=== PATIENT | male | born 1980 ===

== ENCOUNTER 2019-05-16 11:33 | Inpatient (IN) | payer OTHER ==
[~2019-05-16] VITALS: Ht 167.6 cm; Wt 75.0 kg
[2019-05-16] MEDS ORDERED: DIVA-76 PO (12:02)
[2019-05-16] MEDS ORDERED: LEVE250T55 PO (12:02)
[2019-05-16] MEDS ORDERED: ACETAMINOPHEN 325 MG TABLET PO PRN ×2 (12:45→22:45)
[2019-05-16] MEDS ORDERED: ONDANSETRON HCL 4 MG/2 ML VIAL IVP PRN ×2 (12:45→22:45)
[2019-05-16 12:46] LABS: BASOPHILS % (AUTO) 0.9 % (0.0-2.0); EOSINOPHILS % (AUTO) 2.2 % (1.0-6.0); HEMATOCRIT 48.2 % (41-53); HEMOGLOBIN 16.3 g/dL (13.5-17.5); LYMPHOCYTES # (AUTO) 2.2 K/uL (1.0-4.8); LYMPHOCYTES % (AUTO) 31.6 % (22.0-44.0); MEAN CORPUSCULAR HEMOGLOBIN 33.4 pg (26.0-34.0); MEAN CORPUSCULAR HGB CONC 33.9 G/dL (31.0-37.0); MEAN CORPUSCULAR VOLUME 99 fL (80-100); MONOCYTES % (AUTO) 14.3 % (2.0-9.0); NEUTROPHILS # (AUTO) 3.6 K/uL (1.8-7.7); PLATELET COUNT (AUTO) 155 K/uL (150-450); RED BLOOD CELL COUNT(AUTO) 4.89 MIL/uL (4.50-5.90); RED CELL DISTRIBUTION WIDTH 13.6 % (11.5-14.5)
[2019-05-16 13:10] LABS: ANION GAP 14 mmol/L (8-16); CALCIUM, TOTAL 9.4 mg/dL (8.8-10.5); CARBON DIOXIDE 24 mmol/L (22-29); CHLORIDE 100 mmol/L (98-107); CREATININE 0.71 mg/dL (0.60-1.30); GLOMERULAR FILTR. RATE CALC > 60 mL/min (>60); GLUCOSE,RANDOM 105 mg/dL (70-110); POTASSIUM 4.3 mmol/L (3.5-5.1); SODIUM SERUM 138 mmol/L (136-145); UREA NITROGEN, BLOOD 12 mg/dL (7-18)
[2019-05-16 13:17] LABS: ALANINE AMINOTRANSFERASE 219 U/L (12-78); ALBUMIN 3.7 g/dL (3.4-5.0); ALKALINE PHOSPHATASE 60 U/L (46-116); ASPARTATE AMINOTRANSFERASE 142 U/L (15-37); BILIRUBIN,TOTAL 1.2 mg/dL (0.1-1.0); TOTAL PROTEIN, SERUM 8.2 g/dL (6.4-8.2); VALPROIC ACID 91 mcg/mL (50-100)
[2019-05-16 13:48] LABS: AMPHET/METH SCREEN,URINE NEGATIVE (NEGATIVE); BARBITURATE SCREEN, URINE NEGATIVE (NEGATIVE); BENZODIAZEPINES SCREEN,URINE NEGATIVE (NEGATIVE); CANNABINOID SCREEN,URINE POSITIVE (NEGATIVE); COCAINE SCREEN,URINE NEGATIVE (NEGATIVE); METHADONE SCREEN, URINE NEGATIVE (NEGATIVE); OPIATE SCREEN,URINE NEGATIVE (NEGATIVE); PHENCYCLIDINE SCREEN,URINE NEGATIVE (NEGATIVE)
[2019-05-16 14:32] VITALS: BP 125/86
[2019-05-16 16:50] VITALS: BP 116/69
[2019-05-16] MEDS: DIVALPROEX SODIUM 250 MG DR TABLET PO SCH (19:04)
[2019-05-16 19:16] VITALS: BP 114/74
[2019-05-16] MEDS: LevETIRAcetam 500 MG TABLET PO SCH (20:28)
[2019-05-16] MEDS ORDERED: BISACODYL 10 MG RECTAL RECTAL SUPPOSITORY PR PRN (22:45)
[2019-05-16] MEDS ORDERED: IPRATROPIUM BROMIDE 0.5 MG/2.5 ML NEB SOLUTION NEB PRN (22:45)
[2019-05-16] MEDS ORDERED: ALBUTEROL SULFATE 2.5 MG/0.5 ML NEB SOLUTION NEB PRN (22:45)
[2019-05-16] MEDS ORDERED: MAGNESIUM HYDROXIDE SUSPENSION 30 ML UDCUP PO PRN (22:45)
[2019-05-16 23:32] VITALS: BP 111/67
[2019-05-16] MEDS: HEPARIN SODIUM,PORCINE 5,000 UNITS/ML VIAL SQ SCH (23:44)
[2019-05-17 04:56] VITALS: BP 112/76
[2019-05-17 07:46] VITALS: BP 113/80
[2019-05-17] MEDS: HEPARIN SODIUM,PORCINE 5,000 UNITS/ML VIAL SQ SCH ×3 (08:01→23:35)
[2019-05-17] MEDS: LevETIRAcetam 500 MG TABLET PO SCH ×2 (08:01→20:28)
[2019-05-17] MEDS: DIVALPROEX SODIUM 250 MG DR TABLET PO SCH ×2 (08:01→20:28)
[2019-05-17] MEDS: DOCUSATE SODIUM 100 MG CAPSULE PO SCH ×2 (08:01→20:29)
[2019-05-17 12:02] VITALS: BP 121/70
[2019-05-17 15:39] VITALS: BP 99/50
[2019-05-17 20:01] VITALS: BP 112/62
[2019-05-17] MEDS: MIRTAZAPINE 15 MG TABLET PO SCH (20:28)
[2019-05-17] MEDS: ZOLPIDEM TARTRATE 5 MG TABLET PO PRN (23:40)
[2019-05-17 23:55] VITALS: BP 102/46
[2019-05-18 05:24] VITALS: BP 107/58
[2019-05-18 08:07] VITALS: BP 132/74
[2019-05-18] MEDS: HEPARIN SODIUM,PORCINE 5,000 UNITS/ML VIAL SQ SCH ×3 (08:12→23:01)
[2019-05-18] MEDS: DIVALPROEX SODIUM 250 MG DR TABLET PO SCH ×2 (08:12→21:11)
[2019-05-18] MEDS: LevETIRAcetam 500 MG TABLET PO SCH ×2 (08:17→21:11)
[2019-05-18] MEDS: DOCUSATE SODIUM 100 MG CAPSULE PO SCH ×2 (08:17→21:11)
[2019-05-18 11:35] VITALS: BP 132/52
[2019-05-18 17:00] VITALS: BP 110/68
[2019-05-18 19:58] VITALS: BP 128/81
[2019-05-18] MEDS: MIRTAZAPINE 15 MG TABLET PO SCH (21:11)
[2019-05-19] VITALS (7 sets, daily range): BP systolic 113–125; BP diastolic 57–75
[2019-05-19] MEDS: HEPARIN SODIUM,PORCINE 5,000 UNITS/ML VIAL SQ SCH ×3 (09:12→23:10)
[2019-05-19] MEDS: DOCUSATE SODIUM 100 MG CAPSULE PO SCH ×2 (09:13→20:50)
[2019-05-19] MEDS: LevETIRAcetam 500 MG TABLET PO SCH ×2 (09:14→20:50)
[2019-05-19] MEDS: DIVALPROEX SODIUM 250 MG DR TABLET PO SCH ×2 (09:14→20:50)
[2019-05-19] MEDS: TraZODone HCL 50 MG TABLET PO SCH (20:50)
[2019-05-19] MEDS: MIRTAZAPINE 15 MG TABLET PO SCH (20:50)
[2019-05-19] MEDS: ZOLPIDEM TARTRATE 5 MG TABLET PO PRN (23:10)
[2019-05-20 05:34] VITALS: BP 115/70
[2019-05-20 07:48] VITALS: BP 113/68
[2019-05-20] MEDS: HEPARIN SODIUM,PORCINE 5,000 UNITS/ML VIAL SQ SCH ×3 (09:03→23:05)
[2019-05-20] MEDS: LevETIRAcetam 500 MG TABLET PO SCH ×2 (09:04→19:55)
[2019-05-20] MEDS: DIVALPROEX SODIUM 250 MG DR TABLET PO SCH ×2 (09:05→19:55)
[2019-05-20] MEDS: DOCUSATE SODIUM 100 MG CAPSULE PO SCH ×2 (09:05→19:55)
[2019-05-20 11:30] VITALS: BP 131/68
[2019-05-20 16:07] VITALS: BP_SYST 131; BP_SYST 137; BP_DIAS 71; BP_DIAS 91
[2019-05-20 19:40] VITALS: BP 112/59
[2019-05-20] MEDS: TraZODone HCL 50 MG TABLET PO SCH (19:55)
[2019-05-20] MEDS: MIRTAZAPINE 15 MG TABLET PO SCH (19:55)
[2019-05-20] MEDS: ZOLPIDEM TARTRATE 5 MG TABLET PO PRN (23:07)
[2019-05-20 23:50] VITALS: BP 115/71
[2019-05-21 05:37] VITALS: BP 116/67
[2019-05-21 07:58] VITALS: BP 107/48
[2019-05-21 09:11] LABS: BASOPHILS % (AUTO) 1.2 % (0.0-2.0); EOSINOPHILS % (AUTO) 4.2 % (1.0-6.0); HEMATOCRIT 53.2 % (41-53); HEMOGLOBIN 17.8 g/dL (13.5-17.5); LYMPHOCYTES # (AUTO) 2.1 K/uL (1.0-4.8); LYMPHOCYTES % (AUTO) 43.6 % (22.0-44.0); MEAN CORPUSCULAR HEMOGLOBIN 33.3 pg (26.0-34.0); MEAN CORPUSCULAR HGB CONC 33.5 G/dL (31.0-37.0); MEAN CORPUSCULAR VOLUME 99 fL (80-100); MONOCYTES # (AUTO) 0.4 K/uL (0.1-1.0); MONOCYTES % (AUTO) 7.5 % (2.0-9.0); NEUTROPHILS # (AUTO) 2.1 K/uL (1.8-7.7); NEUTROPHILS % (AUTO) 43.5 % (40.0-70.0); PLATELET COUNT (AUTO) 144 K/uL (150-450); RED BLOOD CELL COUNT(AUTO) 5.36 MIL/uL (4.50-5.90); RED CELL DISTRIBUTION WIDTH 13.6 % (11.5-14.5)
[2019-05-21 09:16] LABS: ANION GAP 4 mmol/L (8-16); CALCIUM, TOTAL 9.5 mg/dL (8.8-10.5); CARBON DIOXIDE 31 mmol/L (22-29); CHLORIDE 102 mmol/L (98-107); GLOMERULAR FILTR. RATE CALC > 60 mL/min (>60); GLUCOSE,RANDOM 169 mg/dL (70-110); POTASSIUM 4.1 mmol/L (3.5-5.1); SODIUM SERUM 137 mmol/L (136-145); UREA NITROGEN, BLOOD 9 mg/dL (7-18)
[2019-05-21] MEDS: DOCUSATE SODIUM 100 MG CAPSULE PO SCH (09:16)
[2019-05-21] MEDS: LevETIRAcetam 500 MG TABLET PO SCH (09:16)
[2019-05-21] MEDS: HEPARIN SODIUM,PORCINE 5,000 UNITS/ML VIAL SQ SCH (09:16)
[2019-05-21 09:22] LABS: ALANINE AMINOTRANSFERASE 165 U/L (12-78); ALBUMIN 3.6 g/dL (3.4-5.0); ALKALINE PHOSPHATASE 60 U/L (46-116); ASPARTATE AMINOTRANSFERASE 104 U/L (15-37); BILIRUBIN,TOTAL 0.6 mg/dL (0.1-1.0); TOTAL PROTEIN, SERUM 8.3 g/dL (6.4-8.2)
[2019-05-21] MEDS ORDERED: MIRT30 PO (09:48)
[2019-05-21] MEDS ORDERED: TRAZ-252 PO (09:49)
[2019-05-21] MEDS ORDERED: LEVE500T53 PO (12:01)
[2019-05-21 12:37] VITALS: BP 117/68
[2019-05-21] MEDS: DIVALPROEX SODIUM 250 MG DR TABLET PO SCH (12:45)
[2019-05-21 15:00] VITALS: BP 114/61
== END 2019-05-21 16:42 | DRG 101 ==
LOC: EMS 11:35 → 6S 12:55
PROVIDERS: ADMIT Hospitalist; ATTEND Hospitalist
DX: G40.409 Other generalized epilepsy and epileptic syndromes, not intractable, without status epilepticus (principal); F33.2 Major depressive disorder, recurrent severe without psychotic features; R45.851 Suicidal ideations
CPT/HCPCS: G0480; J1644